=== PATIENT | male | born 1980 | race Caucasian/White ===

== ENCOUNTER 2016-08-21 21:57 | Emergency (ER) | payer BC ==
[~2016-08-21] VITALS: Ht 175.3 cm; Wt 93.9 kg
[2016-08-21] MEDS ORDERED: LISI40TA4 PO (22:09)
[2016-08-21] MEDS ORDERED: ALLO300T2 PO (22:09)
[2016-08-21] MEDS ORDERED: ATOR10TA PO (22:09)
[2016-08-21] MEDS ORDERED: ASPIRIN 81 MG TAB.CHEW PO ONE (22:15)
[2016-08-21] MEDS ORDERED: ASPIRIN 81 MG TAB.CHEW ONE (22:27)
[2016-08-21 22:31] LABS: BASOPHILS # (AUTO) 0.1 K/uL (0.0-8.0); BASOPHILS % (AUTO) 0.8 % (0.0-2.0); EOSINOPHILS # (AUTO) 0.1 K/uL (0.0-0.7); HEMATOCRIT 47.3 % (40-50); HEMOGLOBIN 15.8 G/DL (14.0-18.0); LYMPHOCYTES # (AUTO) 3.2 K/UL (0.8-4.8); MEAN CORPUSCULAR HEMOGLOBIN 30.9 UUG (27.0-31.0); MEAN CORPUSCULAR HGB CONC 33 g/dL (32.0-37.0); MEAN CORPUSCULAR VOLUME 92.7 FL (82.0-92.0); MONOCYTES # (AUTO) 0.5 K/UL (0.1-1.30); MONOCYTES % (AUTO) 6.8 % (0.0-11.0); NEUTROPHILS # (AUTO) 3.5 K/UL (1.8-8.9); NEUTROPHILS % (AUTO) 47.4 % (38.5-71.5); PLATELET COUNT (AUTO) 265 K/UL (150-450); WHITE BLOOD COUNT (AUTO) 7.4 K/UL (4.0-11.2)
[2016-08-21 22:49] LABS: BILIRUBIN,DIRECT 0.2 mg/dL (0.0-0.2); CREATININE 1.3 mg/dL (0.6-1.3); POTASSIUM 3.8 mmol/L (3.5-5.1); TOTAL PROTEIN, SERUM 8.2 g/dL (6.4-8.2)
--- NOTE | 2016-08-21 23:26 | NUR ---
Patient discharged to home in stable conditon. Written and verbal after care instructions given. Patient verbalizes understanding of instructions. Ambulated from ER with stable gait. All belongings with patient.
[2016-08-21 23:28] VITALS: BP 131/74
== END 2016-08-21 23:29 | disposition home or self-care (01) ==
LOC: ER 21:59
DX: R07.89 Other chest pain (principal); I10 Essential (primary) hypertension; E78.5 Hyperlipidemia, unspecified; M10.9 Gout, unspecified
CPT/HCPCS: 36415; 71010; 80048; 80076; 84484; 85025; 85730; 93005; 99285; A4663; 70030-TC